=== PATIENT | male | born 1960 | race Caucasian/White ===

== ENCOUNTER → 2020-07-25 02:57 | Outpatient (CLI) | payer BC, SELFPAY ==
[2020-07-25 19:37] LABS: SARS-CoV-2 RNA PCR Negative
== END ==
PROVIDERS: Visit Provider Internal Medicine Gastroenterology
DX: Z01.812 Encounter for preprocedural laboratory examination (principal); Z20.822 Contact with and (suspected) exposure to COVID-19
CPT/HCPCS: C9803; U0003; U0005

== ENCOUNTER 2020-07-28 01:24 | Day surgery (SDC) | payer BC, SELFPAY ==
[2020-01-28 09:32] VITALS: BMI 28.3
[2020-07-17 12:31] VITALS: BMI 28.8
[2020-07-28 10:38] VITALS: BP 121/92; PULSE 69; RESP 14; TEMP 36.4; O2SAT 99; BMI 27.9
[2020-07-28] MEDS: LACTATED RINGERS 1,000 ML 150 ML IV CONT (10:43)
--- NOTE | 2020-07-28 11:24 | P.PNAN_ITS ---
Anes - Initial Pre Proc Eval Procedure: Operation Date: 07/28/20 11:45 Proposed Procedures p Esophagogastroduodenoscopy & Screening Colonoscopy - Tyrone Florez MD Date/Time: 07/28/20 11:24 Surgeon: Tyrone Dugan MD Pre Op Diagnosis: GERD, Dysphagis, Neoplasm Screening Patient Data Age: 60 Gender: M Height: 6 ft 2 in Weight: 98.8 kg Last Vital Signs Temp 97.6 F 07/28/20 10:38 Pulse 69 07/28/20 10:38 Resp 14 07/28/20 10:38 BP 121/92 H 07/28/20 10:38 Pulse Ox 99 07/28/20 10:38 Allergies Allergy/AdvReac Type Severity Reaction Status Date / Time amoxicillin Allergy Unknown Hives Verified 07/28/20 10:36 sulfamethoxazole Allergy Unknown Hives Verified 07/28/20 10:36 Home Medications Medication Instructions Recorded Confirmed Type omeprazole 40 mg capsule,delayed 40 mg PO DAILY 12/13/19 07/28/20 History release Patient hx anesthesia problems: none Family hx anesthesia problems: none PMFSH Past Medical History Medical History (Updated 12/13/19 @ 10:27 by Tyrone Dugan MD) Colon cancer screening Dysphagia Prostate cancer Surgical History Surgical History (Updated 12/13/19 @ 10:26 by Tyrone Dugan MD) History of hydrocelectomy Family History Family History (Updated 12/13/19 @ 10:26 by Tyrone Dugan MD) Other Diabetes mellitus Social History Social History (Updated 12/13/19 @ 10:26 by Tyrone Dugan MD) Smoking status: Never smoker Substance use type: does not use Living arrangements: with family Spiritual care concerns: No Anes - Eval Final PreProcedure Day of Procedure 07/28/20 11:24 Patient weight: overweight Heart: regular rate and rhythm Lungs: clear to auscultation Airway: Mallampati scale class II Neurological: alert and oriented Last oral intake: >/= 8 hours ASA classification: III Emergent: no Anesthetic plan: proceed Anesthesia type and monitoring: general GIVS and standard monitoring Informed Consent: The patient's anesthetic plan and its attendant risks and benefits were discussed with the patient/family/POA. Questions were solicited and answers provided to the satisfaction of the patient/family/POA.
--- NOTE | 2020-07-28 11:45 | PM.HPGS ---
History of Present Illness History of Present Illness Consent: Risks, benefits, and alternatives have been discussed and questions answered. Patient agrees to proceed with procedure. Chief complaint: GERD, Dysphagis, Neoplasm Screening Narrative: Fernando Hawkins is a 60 year old male with gerd better with ppi, also here for screening colonoscopy Review of Systems Constitutional: Constitutional: Denies headache(s) and Denies weakness Eyes: Eyes: Denies blurry vision ENT: Reports Normal hearing present, Denies headache(s) and Denies neck pain Cardiovascular: Cardiovascular: Denies chest pain and Denies dyspnea Respiratory: Respiratory: Denies dyspnea Gastrointestinal: Gastrointestinal: Reports no additional gastrointestinal complaints Genitourinary: Genitourinary: Denies dysuria Musculoskeletal: Musculoskeletal: Denies neck pain Integumentary/Breasts: Skin/Breast: Denies dry skin Neurologic: Reports Normal hearing present, Denies headache(s) and Denies weakness Psychiatric: Psychiatric: Denies anxiety Endocrine: Endocrine: Denies change in body appearance Hematologic/Lymphatic: Hematologic/Lymphatic: Denies easy bleeding Allergic/Immunologic: Allergic/Immunologic: Denies urticaria PMFSH Past Medical History Medical History (Updated 07/28/20 @ 11:46 by Tyrone Dugan MD) Colon cancer screening Dysphagia GERD (gastroesophageal reflux disease) Prostate cancer Surgical History Surgical History (Updated 12/13/19 @ 10:26 by Tyrone Dugan MD) History of hydrocelectomy Family History Family History (Updated 12/13/19 @ 10:26 by Tyrone Dugan MD) Other Diabetes mellitus Social History Social History (Updated 12/13/19 @ 10:26 by Tyrone Dugan MD) Smoking status: Never smoker Substance use type: does not use Living arrangements: with family Spiritual care concerns: No Meds Home Medications and Allergies Home Medications Medication Instructions Recorded Confirmed Type omeprazole 40 mg capsule,delayed 40 mg PO DAILY 12/13/19 07/28/20 History release Allergies Allergy/AdvReac Type Severity Reaction Status Date / Time amoxicillin Allergy Unknown Hives Verified 07/28/20 10:36 sulfamethoxazole Allergy Unknown Hives Verified 07/28/20 10:36 Vital Signs Vital Signs - 24 hr 07/28/20 10:38 Temperature 97.6 F Pulse Rate 69 Respiratory Rate 14 Blood Pressure 121/92 H Pulse Oximetry 99 Exam Const: General: comfortable and no acute distress HENMT: General nose exam: Normal nares present Eyes: General: appearance normal, both eyes and all related structures Neck: Neck: no JVD Resp: Auscultation: clear to auscultation bilaterally Cardio: Rate: regular rate Rhythm: regular rhythm GI: Inspection: non-distended GI Palp: Yes Soft to palpation Skin: General skin exam: normal color Neuro: General: gait normal Speech: normal speech Extrem: General: normal to inspection Psych: Mental Status: mental status grossly normal Assessment and Plan Assessment and plan (1) GERD (gastroesophageal reflux disease): Code(s): K21.9 - Gastro-esophageal reflux disease without esophagitis Status: Acute Assessment and Plan: egd with bx (2) Colon cancer screening: Code(s): Z12.11 - Encounter for screening for malignant neoplasm of colon Status: Acute Assessment and Plan: colonoscopy
[2020-07-28 12:24] VITALS: BP 111/80; PULSE 76; RESP 17; O2SAT 98
== END 2020-07-28 12:58 | disposition home or self-care (01) ==
PROVIDERS: PCP Student in an Organized Health Care Education/Training Program; Visit Provider Internal Medicine Gastroenterology
PROC: 0DJ08ZZ Inspection of Upper Intestinal Tract, Via Natural or Artificial Opening Endoscopic (ICD-10-PCS; CPT 43235; principal; 2020-07-28 11:45)
DX: Z12.11 Encounter for screening for malignant neoplasm of colon (principal); K21.00 Gastro-esophageal reflux disease with esophagitis, without bleeding; K29.50 Unspecified chronic gastritis without bleeding; R13.10 Dysphagia, unspecified; K64.8 Other hemorrhoids; C61 Malignant neoplasm of prostate
CPT/HCPCS: 45378; 43239; 88305; 88313; J2704; J7120

== ENCOUNTER 2022-03-09 10:34 | Emergency (ER) | payer BC, SELFPAY ==
[2022-03-09 10:42] VITALS: BP 136/80; PULSE 75; RESP 16; TEMP 36.4; O2SAT 99
--- NOTE | 2022-03-09 11:17 | ED.URI ---
HPI - URI/Sore Throat General Chief Complaint: Upper Respiratory Infection Stated Complaint: Sinus pressure, sore throat Time Seen by Provider: 03/09/22 10:45 Source: patient Mode of arrival: ambulatory Limitations: no limitations History of Present Illness HPI Narrative: Fernando is a 62-year-old male patient presenting to the clinic today with complaints of sinus pressure and sore throat times 3 days. He is concerned that he may have a sinus infection. He reports he is having knee surgery on March 19 and does not want to be delayed in this. MD elicited complaint: sore throat and nasal congestion Related Data Home Medications Medication Instructions Recorded Confirmed omeprazole 40 mg capsule,delayed 40 mg PO DAILY 12/13/19 03/09/22 release Allergies Allergy/AdvReac Type Severity Reaction Status Date / Time amoxicillin Allergy Unknown Hives Verified 03/09/22 10:47 sulfamethoxazole Allergy Unknown Hives Verified 03/09/22 10:47 Review of Systems Review of Systems: Pertinent positives per HPI. Patient denies any fever, chills, rash, headache, visual changes, dizziness,shortness of breath, chest pain, palpitations, nausea, vomiting, diarrhea, constipation, abdominal pain, or any urinary issues. [facility] Past Medical History Medical History Colon cancer screening Dysphagia GERD (gastroesophageal reflux disease) Prostate cancer Surgical History Surgical History History of hydrocelectomy Family History Family History Other Diabetes mellitus Social History Social History Smoking status: Never smoker Substance use type: does not use Spiritual care concerns: No Comments At the time of my signature, I reviewed and agree with the nursing past medical, surgical, social, and family history. There is no relevant family history pertinent to the patient complaint. Exam Narrative: General: Well-developed, well nourished, in no apparent distress Head: Normocephalic, atraumatic Eyes: Pupils equally round and reactive to light bilaterally, EOM intact, sclera and conjunctive clear, no discharge, lids normal Ears: TMs intact and clear, ear canals clear, no drainage, grossly hearing normal. Nose: Nares patent, clear nasal discharge, moderate inflammation, no sinus tenderness. Mouth: Oral pharynx without lesions or masses, good dentition, MMM. Postnasal drip Neck: Supple, trachea midline, no enlargement of anterior or posterior cervical nodes, no thyroid masses or goiter palpable. Cardio: Regular rate and rhythm, s1 and s2 normal, no murmur appreciated. Resp: Expiratory wheezing in the upper and mid right lobe otherwise clear, no rhonchi, rales, or rubs Course Course Emergency Course: Portions of this record may have been created with voice recognition software. Level of Care: Express Care Visit Vital Signs Vital signs: Vital Signs Temperature 36.4 C 03/09/22 10:42 Pulse Rate 75 03/09/22 10:42 Respiratory Rate 16 03/09/22 10:42 Blood Pressure 136/80 03/09/22 10:42 Pulse Oximetry 99 03/09/22 10:42 Temperature 36.4 C 03/09/22 10:42 Pulse Rate 75 03/09/22 10:42 Respiratory Rate 16 03/09/22 10:42 Blood Pressure 136/80 03/09/22 10:42 Pulse Oximetry 99 03/09/22 10:42 Vital signs reviewed MDM - URI/Sore Throat MDM Narrative Medical decision making narrative: At the time of the patient is resting comfortably on the exam table. I suspect patient has URI/bronchitis. Will send in prescription for prednisone/albuterol inhaler. Supportive measures were discussed with the patient knee voiced understanding of discharge instructions and agrees to treatment plan. Differential Diagnosis Differential diagnosis: Likely upper resp
== END 2022-03-09 11:22 | disposition home or self-care (01) ==
PROVIDERS: Emergency Provider Nurse Practitioner Family; PCP Student in an Organized Health Care Education/Training Program
DX: J40 Bronchitis, not specified as acute or chronic (principal); K21.9 Gastro-esophageal reflux disease without esophagitis; Z85.46 Personal history of malignant neoplasm of prostate; Z20.822 Contact with and (suspected) exposure to COVID-19
CPT/HCPCS: 87426; 87804; 99213; C9803; G0463

== ENCOUNTER 2024-08-18 10:03 | Emergency (ER) | payer BC, SELFPAY ==
--- NOTE | 2024-08-18 10:10 | ED_ITS ---
HPI - URI/Sore Throat General Chief Complaint: Upper Respiratory Infection Stated Complaint: Sinus Infection Symptoms Time Seen by Provider: 08/18/24 10:14 Source: patient and RN notes reviewed Mode of arrival: ambulatory Limitations: no limitations History of Present Illness HPI Narrative: 64 y/o male presented for c/o nasal congestion and drainage, pressure in ears, cough, and eyes watering. Onset 6 days. Says right eye started with white discharge yesterday and endorses redness and itching, and crusted in the morning. Denies swelling, blurred vision, photophobia, or FB sensation. Denies sob, wheezing, n/v/d/fc. Taking Dayquil and Nyquil MD elicited complaint: cough Related Data Home Medications ?Medication ?Instructions ?Recorded ?Confirmed ?Last Taken ?Type omeprazole 40 mg capsule,delayed 40 mg PO DAILY 12/13/19 08/18/24 Unknown History release Vitamin C 08/18/24 Unknown History Vitamin D (with calcium) 08/18/24 Unknown History multivitamin 08/18/24 Unknown History zinc 08/18/24 Unknown History Allergies Allergy/AdvReac Type Severity Reaction Status Date / Time amoxicillin Allergy Unknown Hives Verified 08/18/24 10:08 sulfamethoxazole Allergy Unknown Hives Verified 08/18/24 10:08 Review of Systems 2 Review of Systems: CONSTITUTIONAL: Endorses malaise, denies body aches, chills, sweats, fever EYES: Denies visual changes, redness, or discharge ENT: Reports rhinorrhea, congestion, sinus pain, otalgia, sore throat CARDIOVASCULAR: Denies chest pain, palpitations, edema RESPIRATORY: Reports cough, post nasal drainage. Denies dyspnea GASTROINTESTINAL: Denies abdominal pain, nausea, vomiting, diarrhea SKIN: Denies rash or itching NEUROLOGIC: Denies headache PMFSH Past Medical History Medical History Colon cancer screening Dysphagia GERD (gastroesophageal reflux disease) Prostate cancer Surgical History Surgical History History of hydrocelectomy Family History Family History Other Diabetes mellitus Social History Social History Smoking status: Never smoker Substance use type: does not use Living arrangements: with family Spiritual care concerns: No Exam Narrative: GENERAL: Ill-appearing, nontoxic no acute distress. EYES: right conjunctival injection, no swelling or FB. PERRLA, EOMI ENT: Mucous membranes moist. Nasal congestion noted. TM pearly ralph with dull light reflex bilaterally; no tragal tenderness. Oropharynx erythematous without lesions or exudate, no drooling, no hoarseness, no trismus, uvula midline. No tripod positioning, muffled voice, soft palate or pharyngeal wall bulging NECK: Supple. No lymphadenopathy CHEST: Clear to auscultation, breath sounds equal. No wheezing, rhonchi, rales, or stridor. No respiratory distress, speaks in full sentences. HEART: Regular rate and rhythm. No murmur heard. SKIN: Warm, dry, no rash. NEURO: Alert and oriented x3. PSYCH: Normal mood and affect Course Course Emergency Course: Patient is aware of diagnosis, understands and agrees to treatment plan. Anticipatory guidance given. Patient agrees to follow-up as directed and is aware of reasons to seek care at the emergency department. Portions of this record may have been created with voice recognition software Level of Care: Express Care Visit Vital Signs Vital signs: reviewed MDM - URI/Sore Throat MDM Narrative Medical decision making narrative: Discussed physical exam findings and viral vs bacterial infections. Advised supportive measures and signs/symptoms to go to the ER. Pt is appropriate for outpt treatment and f/u. Differential Diagnosis Differential diagnosis: Likely upper respiratory infection, sinusitis and viral infection Discharge Plan Discharge Clinical Impression: Upper respiratory infection Patient Disposition: Home Condition: Stable Instructions: Antibiotic Form, Sinusitis (ED) Additional Instructions: if symptoms are due to a viral illness, it is not treated with antibiotics. Viral symptoms can be present for up to 10-14 days. Recommendations: Flonase spray and Zyrtec for sinus congestion Cough syrup may cause drowsiness; avoid driving or take it at night time. Tylenol every 8 hours as needed for pain/fever Soft foods, cool liquids, warm tea Rest and stay hydrated. --Follow up with your PCP --Go to the ER immediately if you cannot swallow your saliva, trouble breathing/wheezing, throat swelling, pain is persistent and severe Patient Language: Wallisian Prescriptions: New azithromycin [Zithromax Z-Kishan] 250 mg tablet See Rx Instructions .ROUTE .COMPLEX Qty: 6 0RF Rx Instructions: For 250 mg dose pack: take 500 mg today (day 1), then 250 mg for 4 days (days 2-5) polymyxin B sulf-trimethoprim 10,000 unit- 1 mg/mL drops 1 drp RIGHT EYE Q3H 7 Days Qty: 10 0RF Rx Instructions: while awake; do not exceed 6 doses in 24 hours No Action albuterol sulfate 90 mcg/actuation HFA aerosol inhaler 2 puff inhalation Q4-6H PRN (Reason: shortness of breath or wheezing) 30 Days Qty: 8.5 0RF multivitamin Vitamin C Vitamin D (with calcium) zinc omeprazole 40 mg capsule,delayed release(DR/EC) 40 mg PO DAILY Follow-up/Referrals: Rocío,DO Kieran [Primary Care Provider] - Time of Disposition: 10:24
[2024-08-18 10:11] VITALS: BP 111/84; PULSE 86; RESP 16; TEMP 36.6; O2SAT 98
== END 2024-08-18 10:26 | disposition home or self-care (01) ==
PROVIDERS: Emergency Provider Nurse Practitioner Family; PCP Student in an Organized Health Care Education/Training Program
DX: J06.9 Acute upper respiratory infection, unspecified (principal); K21.9 Gastro-esophageal reflux disease without esophagitis; Z85.46 Personal history of malignant neoplasm of prostate
CPT/HCPCS: 99213; G0463